=== PATIENT | female | born 1985 | race Caucasian/White ===

== ENCOUNTER → 2023-01-16 | Outpatient (CLI) | payer BC ==
[~2023-01-16] MED LIST: ACET-2267 PO; AGM875T PO; AMOX500C2 PO; BUTA1CAP39 PO; CEPH-507 PO; DICY20TA57 PO; FERR-84 PO; FEXO1TAB43 PO; HYDR-3781 PO; IBP600T1 PO; IBUP-1773 PO; IBUP-844 PO; IBUP200C PO; METF-397 PO; NITR-65 PO; NO HOME MEDS; OMEP20TA33 PO; OXYC-12 PO; PANT40TA2 PO; PRD10T; PREN-98 PO; PROC-1 PO; PRX20T PO; SULF1TAB38 PO; TOPI50TA37 PO; birth control
--- NOTE | 2023-01-16 15:52 | Diagnostic Imaging Report ---
PROCEDURE: US Thyroid. TECHNIQUE: Multiple real-time grayscale images were obtained of the thyroid in various projections. INDICATION: Abnormal thyroid labs. FINDINGS: Right lobe of thyroid measures 5.3 x 1.8 x 1.7 cm and the left lobe measures 4.1 x 1.4 x 1.6 cm. Isthmus is 3 mm in thickness. Both lobes show fairly homogeneous echotexture. There is a small nodule in the right lobe of the thyroid in the mid to lower aspect posteriorly measuring 8 mm. It is uncertain if this is actually within the thyroid versus within the parathyroid. The left lobe is unremarkable. No other abnormality is seen. IMPRESSION: 8 mm thyroid versus parathyroid nodule on the right, as described. This study is otherwise unremarkable. Dictated by: Dictated on workstation # [id number]
== END ==
LOC: RAD 13:45
PROVIDERS: ATTEND Family Medicine
DX: E04.1 Nontoxic single thyroid nodule (principal); E03.9 Hypothyroidism, unspecified
CPT/HCPCS: 76536

== ENCOUNTER → 2023-02-18 | Outpatient (CLI) | payer BC ==
--- NOTE | 2023-02-18 18:21 | Diagnostic Imaging Report ---
INDICATION: Neck pain. FINDINGS: Frontal and lateral cervical radiographs showed normal vertebral statures aligned anatomically. The prevertebral space normal. No fracture or acute appearing abnormality. IMPRESSION: Unremarkable two-view cervical spine series Dictated by: Dictated on workstation # [id number]
== END ==
LOC: RAD 12:30
PROVIDERS: ATTEND Family Medicine
DX: M79.2 Neuralgia and neuritis, unspecified (principal)
CPT/HCPCS: 72040

== ENCOUNTER → 2023-03-18 | Outpatient (RCR) | payer BC | END | disposition home or self-care (01) | PROVIDERS: ATTEND Family Medicine | DX: M54.12 Radiculopathy, cervical region (principal); G44.89 Other headache syndrome; M25.511 Pain in right shoulder ==

== ENCOUNTER 2023-04-02 15:31 | Outpatient (RCR) | payer BC | END 2023-04-17 | disposition home or self-care (01) | PROVIDERS: ATTEND Family Medicine | DX: M54.12 Radiculopathy, cervical region (principal); G44.89 Other headache syndrome; M25.511 Pain in right shoulder ==

== ENCOUNTER → 2023-04-06 | Outpatient (CLI) | payer BC ==
--- NOTE | 2023-04-06 10:18 | Diagnostic Imaging Report ---
Clinical indication: Patient states she has chronic spine pain. Exam: MRI of the cervical spine performed without IV contrast. Sequences include sagittal T1, sagittal T2, sagittal T2 fat-sat, and axial T2. Comparison: X-ray of the cervical spine dated 02/18/2023. Findings: Cervical spine has normal alignment with no fracture or dislocation. There is normal craniocervical and anterior atlanto-odontoid alignment. Cervical spinal cord has normal anatomic appearance with no abnormal cord signal. Limited visualization of the posterior fossa is unremarkable. There is no paraspinal soft tissue abnormality. There is no significant central spinal canal or neural foramen narrowing. There is mild low T2 degenerative disk signal changes involving the C2-C6 levels. Besides the C5-C6 level, there is no other significant degenerative disease. The intervertebral disk heights are well-preserved. C1-C2: Unremarkable. C2-C3: Unremarkable. C3-C4: Unremarkable. C4-C5: Unremarkable. C5-C6: There is a mild diffuse disk bulge. There is no significant central canal or neural foramen narrowing. C6-C7: Unremarkable. C7-T1: Unremarkable. Impression: 1: There is C5-C6 mild diffuse disk bulge with no significant central canal or neural foramen narrowing. 2: There is mild low T2 degenerative disk signal changes involving the C2-C6 levels. Otherwise, unremarkable MRI of the cervical spine. MRI of the cervical spine. Dictated by: Dictated on workstation # [id number]
--- NOTE | 2023-04-06 11:01 | Diagnostic Imaging Report ---
CLINICAL INDICATION: Patient has chronic spine pain. Exam: MRI of the thoracic spine performed without IV contrast. Sequences include sagittal T1, sagittal T2, sagittal T2 fat-sat, and axial T2. Comparison: None. Findings: Thoracic spine has normal alignment with no fracture or dislocation. There are small chronic Schmorl's nodes involving the lower thoracic spine. There is no abnormal paraspinal soft tissue signal or abnormality. The thoracic spinal cord has normal anatomic appearance with no abnormal cord signal. The thoracic vertebra have normal signal characteristics. The intervertebral disk heights are well-preserved. There is no significant central spinal canal or neural foramen narrowing. Impression: Mild chronic Schmorl's nodes involving the lower thoracic spine. Otherwise, unremarkable MRI of the thoracic spine. Dictated by: Dictated on workstation # [id number]
== END ==
LOC: RAD 08:37
PROVIDERS: ATTEND Family Medicine
DX: M50.222 Other cervical disc displacement at C5-C6 level (principal); M51.44 Schmorl's nodes, thoracic region
CPT/HCPCS: 72141; 72146